=== PATIENT | female | born 1960 | race Two or more races ===

== ENCOUNTER 2023-04-22 11:04 | Outpatient (CLI) | payer OTHER | END 2023-04-22 13:22 | disposition home or self-care (01) | LOC: SONOGRAMA 11:04 | PROVIDERS: ATTEND Pathology Anatomic Pathology & Clinical Pathology | DX: D44.0 Neoplasm of uncertain behavior of thyroid gland (principal); E07.9 Disorder of thyroid, unspecified ==

== ENCOUNTER 2023-09-09 08:08 | Outpatient (CLI) | payer OTHER | END 2023-09-09 08:10 | disposition home or self-care (01) | LOC: SONOGRAMA 08:08 | PROVIDERS: ATTEND Pathology Anatomic Pathology & Clinical Pathology | DX: C73 Malignant neoplasm of thyroid gland (principal); E04.2 Nontoxic multinodular goiter ==